=== PATIENT | female | born 1970 | race African-American/Black ===

== ENCOUNTER 2016-11-18 04:54 | Inpatient (IN) | payer OTHER ==
[~2016-11-18] VITALS: Ht 172.7 cm; Wt 77.1 kg
[2016-11-18] MEDS ORDERED: SODIUM CHLORIDE 0.9% 1,000 ML IV ONE ×2 (06:19→08:31)
[2016-11-18 07:07] LABS: INR 1.1; PARTIAL THROMBOPLASTIN TIME 23.6 sec (23.4-31.0); PROTHROMBIN TIME 11.3 sec (9.4-11.6)
[2016-11-18 07:09] LABS: HCG SCREEN NEGATIVE
[2016-11-18 07:11] LABS: BASOPHILS % 0.4 % (0.0-2.0); EOSINOPHILS % 1.9 % (0.0-5.0); HEMATOCRIT. 34.4 % (36.0-48.0); HEMOGLOBIN. 10.8 g/dL (12.0-16.0); LYMPHOCYTES % 18.2 % (20.0-50.0); MEAN CORPUSCULAR HEMOGLOBIN 21.2 pg (28.0-32.0); MEAN CORPUSCULAR VOLUME 67.5 fL (81.0-99.0); MEAN PLATELET VOLUME 8.2 fl (7.4-10.4); MONOCYTES % 6.2 % (2.0-8.0); NEUTROPHILS % 73.3 % (40.0-76.0); PLATELET 306 x1000/uL (130-400); RED CELL DISTRIBUTION WIDTH 16.5 % (11.6-14.6)
[2016-11-18 07:13] LABS: CARBON DIOXIDE 27 mEq/L (21-32); CHLORIDE 104 mEq/L (98-107); ETHANOL BLOOD < 10 mg/dL; TROPONIN I < 0.02 ng/mL (0.00-0.04)
[2016-11-18 07:14] LABS: CREATINE KINASE MB FRACTION 1.4 ng/mL (0.5-3.6)
[2016-11-18] MEDS ORDERED: LORAZEPAM 0.5MG TABLET PO ONE (07:15)
[2016-11-18] MEDS ORDERED: MECLIZINE 25MG TABLET PO ONE (07:15)
[2016-11-18 07:42] LABS: PLATELET ESTIMATE NORMAL
[2016-11-18 10:00] VITALS: BP 98/52
[2016-11-18 10:06] LABS: *AMPHETAMINES SCREEN URINE NEGATIVE (NEGATIVE); *BARBITURATES SCREEN URINE NEGATIVE (NEGATIVE); *BENZODIAZEPINES SCREEN URINE NEGATIVE (NEGATIVE); *COCAINE SCREEN URINE NEGATIVE (NEGATIVE); METHADONE URINE SCREEN NEGATIVE (NEGATIVE); OPIATES URINE SCREEN NEGATIVE (NEGATIVE); PHENCYCLIDINE URINE SCREEN NEGATIVE (NEGATIVE)
[2016-11-18 10:24] LABS: CANNABINOID URINE SCREEN PRESUMTIVE POSITIVE (NEGATIVE)
[2016-11-18] MEDS ORDERED: CLON1TAB PO (10:33)
[2016-11-18 12:00] VITALS: BP 98/56
[2016-11-18] MEDS ORDERED: LORAZEPAM 2MG/ML CPJ IV PRN (12:45)
[2016-11-18] MEDS ORDERED: MECLIZINE 25MG TABLET PO PRN (12:45)
[2016-11-18] MEDS ORDERED: CLONIDINE 0.1MG TABLET PO PRN (12:45)
[2016-11-18] MEDS ORDERED: IPRATROPIUM/ALBUTEROL 0.5-3(2.5)MG/3ML NEB INH PRN (12:45)
[2016-11-18] MEDS ORDERED: ACETAMINOPHEN 325MG TABLET PO PRN (12:45)
[2016-11-18] MEDS ORDERED: ONDANSETRON HCL 4MG/2ML VIAL IV PRN (12:45)
[2016-11-18] MEDS ORDERED: HYDROCODONE/ACETAMINOPHEN 5/325MG TABLET PO PRN (12:45)
[2016-11-18] MEDS ORDERED: DIPHENHYDRAMINE 50MG/ML VIAL IV PRN (12:45)
[2016-11-18] MEDS ORDERED: CLONAZEPAM 1MG TABLET PO PRN (13:45)
[2016-11-18] MEDS ORDERED: LEVOFLOXACIN 500MG PREMIX 100 ML IV SCH (15:00)
[2016-11-18 16:00] VITALS: BP 102/59
[2016-11-18 16:45] LABS: CLARITY URINE CLEAR (CLEAR); COLOR URINE YELLOW (YELLOW); GLUCOSE URINE NEGATIVE (NEGATIVE); KETONES URINE NEGATIVE (NEGATIVE); LEUKOCYTE ESTERASE URINE NEGATIVE (NEGATIVE); NITRITE URINE NEGATIVE (NEGATIVE); OCCULT BLOOD URINE NEGATIVE (NEGATIVE); PROTEIN URINE NEGATIVE (NEGATIVE); SPECIFIC GRAVITY URINE 1.015 (1.005-1.030); UROBILINOGEN URINE 0.2 E.U./dL (0.2-1.0)
[2016-11-18 20:00] VITALS: BP 106/65
[2016-11-19] VITALS: BP 96/59
[2016-11-19 04:00] VITALS: BP 107/66
[2016-11-19 07:16] LABS: BASOPHILS % 0.3 % (0.0-2.0); EOSINOPHILS % 4.9 % (0.0-5.0); HEMATOCRIT. 33.3 % (36.0-48.0); HEMOGLOBIN. 10.4 g/dL (12.0-16.0); LYMPHOCYTES % 31.9 % (20.0-50.0); MEAN CORPUSCULAR HEMOGLOBIN 21.2 pg (28.0-32.0); MEAN CORPUSCULAR VOLUME 67.9 fL (81.0-99.0); MEAN PLATELET VOLUME 8.4 fl (7.4-10.4); NEUTROPHILS % 56.9 % (40.0-76.0); PLATELET 274 x1000/uL (130-400); RED CELL DISTRIBUTION WIDTH 17.1 % (11.6-14.6)
[2016-11-19 08:00] VITALS: BP 109/61
[2016-11-19 08:38] LABS: CARBON DIOXIDE 27 mEq/L (21-32); CHLORIDE 110 mEq/L (98-107); HDL CHOLESTEROL 60 mg/dL (40-59); LDL CHOLESTEROL 86 mg/dL (5-100)
[2016-11-19 12:00] VITALS: BP 116/81
[2016-11-19 12:57] VITALS: BP 116/81
== END 2016-11-19 13:30 | disposition home or self-care (01) | DRG 195 ==
LOC: ER 05:04 → 6EST 09:04 → EDBEDREQSVC 09:19 → ENRESERV 09:20
PROVIDERS: ADMIT Internal Medicine; ATTEND Internal Medicine
DX: J18.9 Pneumonia, unspecified organism (principal); D64.9 Anemia, unspecified; R42 Dizziness and giddiness; F12.90 Cannabis use, unspecified, uncomplicated; F41.9 Anxiety disorder, unspecified; R73.9 Hyperglycemia, unspecified
CPT/HCPCS: 36415; 70450; 71010; 80053; 80061; 80305; 81003; 82553; 83036; 83735; 83880; 84484; 84703; 85025; 85610; 85730; 87040; 87086; 93005; 96360; 96361; 97162; 99285; G0482; J1956; J7030; J7040; J8597